=== PATIENT | male | born 1955 | race Caucasian/White ===

== ENCOUNTER 2018-10-22 06:46 | Inpatient (IN) ==
[2018-10-22] MEDS ORDERED: 0.9 % Sodium Chloride 1,000 ML IVC ONE (07:20)
--- NOTE | 2018-10-22 07:24 | Emergency Department Note ---
Disposition Clinical Impression: Hyponatremia Disposition: Admitted As Inpatient Condition: Fair Referrals: Alessandra Reyes, CLINICAL PHARMACIST [Primary Care Provider] - Forms: ED Satisfaction Letter Time of Disposition: 09:02 General Adult HPI - General Chief complaint: ED Recheck/Abnormal Lab/Rx Stated complaint: low sodium Time Seen by Provider: 10/22/18 07:02 Source: patient Limitations: no limitations - History of Present Illness HPI Narrative: Patient is 62-year-old gentleman who presents to the emergency department with chief complaint of generalized weakness and hyponatremia. Patient reports he has prior history of SIADH and has episodes of hyponatremia. The patient reports that he had an outpatient check of his sodium that showed him to have a level of 121. The patient states that he has not filled his normal self. The patient reports that he has felt lightheadedness had a headache and has had gen eralized abdominal pain. Pain Scale: 4 - Related Data Allergies Allergy/AdvReac Type Severity Reaction Status Date / Time morphine Allergy See Verified 10/22/18 06:49 Comments aspirin AdvReac See Verified 10/22/18 06:49 Comments NSAIDS (Non-Steroidal AdvReac See Verified 10/22/18 06:49 Anti-Inflamma Comments All systems ED: reviewed and negative except as stated. Past Medical History - Past Medical History Attestation: Yes The following information was validated with the patient. Medical history: Reports: no medical history Psychiatric history: Reports: no psych history - Social History Smoking Status: Never smoker Smokeless Tobacco Status: No Alcohol use: Reports: none Drug use: Reports: none Physical Exam General: Conversant and pleasant interactive and nontoxic. Head: Normocephalic/atraumatic Eyes:PERRLA, EOMI, no conjunctivitis Nares: Without d/c. Ears: No erythema or d/c noted. Oralpharnyx: P&MMM noted, Neck: Supple, no JVD or ENVIRONMENTAL DIRECTOR noted. Cardovascular: regular rate and rhythm without murmur, brisk capillary refill, no peripheral edema. Lungs: Clear to ascultation bilaterally, non-labored Abd: Soft diffuse mild tenderness, Non Distended, no guarding, no rebound. : Defered Extremities: moves all extremities equally Neuro: AOx3, no obvious gross neuro deficit Psych: Normal Affect Derm: No rash noted - General Limitations: no limitations General appearance: alert, in no apparent distress Course Vital Signs Temperature 97.4 F L 10/22/18 06:50 Pulse Rate 67 10/22/18 06:50 Respiratory Rate 18 10/22/18 06:50 Blood Pressure 147/93 10/22/18 06:50 O2 Sat by Pulse Oximetry 100 10/22/18 06:50 Temperature 97.4 F L 10/22/18 06:56 Pulse Rate 61 10/22/18 07:51 Respiratory Rate 16 10/22/18 07:51 Blood Pressure 146/85 10/22/18 07:51 O2 Sat by Pulse Oximetry 100 10/22/18 07:51 Oxygen Delivery Oxygen Delivery Room Air Medical Decision Making - Lab Data Result diagrams: 10/22/18 07:34 10/22/18 07:34 Lab Results 10/22/18 10/22/18 10/22/18 Range/Units 07:34 07:34 07:34 WBC 6.8 (4.3-11.1) K/mcL RBC 4.11 L (4.19-5.50) M/mcL Hgb 12.1 L (12.9-16.9) g/dL Hct 34.0 L (37.5-50.1) % MCV 82.7 L (83.0-100.0) fL MCH 29.4 (28.0-33.3) pg MCHC 35.6 H (31.6-35.5) g/dL RDW 13.3 (11.5-14.5) % Plt Count 249 (140-400) K/mcL MPV 10.1 (9.4-12.4) fL Immature Gran % 0.1 (0-4) % Seg Neutrophils % 40.4 % Lymphocytes % 39.4 % Monocytes % 15.3 % Eosinophils % 4.4 % Basophils % 0.4 % Neutrophils # 2.7 (1.6-8.9) K/mcL Lymphocytes # 2.7 (0.6-4.6) K/mcL Monocytes # 1.0 (0.0-1.3) K/mcL Eosinophils # 0.3 (0.0-0.6) K/mcL Basophils # 0.0 (0.0-0.2) K/mcL Sodium 116 L* (136-145) mEq/L Potassium 3.7 (3.5-5.1) mEq/L Chloride 85 L (98-107) mEq/L Carbon Dioxide 25 (23-29) mEq/L BUN 8 (8-23) mg/dL Creatinine 0.63 L (0.70-1.30) mg/dL Est GFR ( Amer) > 60 (> 60) Est GFR (Non-Af Amer) > 60 (> 60) BUN/Creatinine Ratio 13 (6-26) Glucose 93 (70-105) mg/dL Calculated Osmolality 240 L (280-300) Lactic Acid 0.7 (0.5-2.2) mmol/L Calcium 8.8 (8.6-10.3) mg/dL Venous Ioniz Calcium (1.15-1.35) mmol/L Magnesium 1.4 L (1.6-2.6) mg/dL Total Bilirubin 0.7 (0.3-1.0) mg/dL AST 27 (13-39) Units/L ALT 20 (7-52) Units/L Alkaline Phosphatase 60 (34-104) Units/L Troponin I < 0.03 (< 0.04) ng/mL Serum Total Protein 6.6 (6.4-8.9) g/dL Albumin 3.8 (3.5-5.7) g/dL Globulin 2.8 (2.4-3.5) g/dL Albumin/Globulin Ratio 1.4 (1.1-2.2) Urine Color (Yellow) Urine Clarity (Clear) Urine pH (5.0-8.0) pH Units Ur Specific [place] (1.010-1.025) Urine Protein (Neg-Trace) mg/dL Urine Glucose (UA) (Normal) mg/dL Urine Ketones (Negative) mg/dL Urine Blood (Negative) Urine Nitrite (Negative) Urine Bilirubin (Negative) Urine Urobilinogen (Normal) mg/dL Ur Leukocyte Esterase (Negative) Ur Culture Indicated? (NO) 10/22/18 10/22/18 Range/Units 07:45 Unknown WBC (4.3-11.1) K/mcL RBC (4.19-5.50) M/mcL Hgb (12.9-16.9) g/dL Hct (37.5-50.1) % MCV (83.0-100.0) fL MCH (28.0-33.3) pg MCHC (31.6-35.5) g/dL RDW (11.5-14.5) % Plt Count (140-400) K/mcL MPV (9.4-12.4) fL Immature Gran % (0-4) % Seg Neutrophils % % Lymphocytes % % Monocytes % % Eosinophils % % Basophils % % Neutrophils # (1.6-8.9) K/mcL Lymphocytes # (0.6-4.6) K/mcL Monocytes # (0.0-1.3) K/mcL Eosinophils # (0.0-0.6) K/mcL Basophils # (0.0-0.2) K/mcL Sodium (136-145) mEq/L Potassium (3.5-5.1) mEq/L Chloride (98-107) mEq/L Carbon Dioxide (23-29) mEq/L BUN (8-23) mg/dL Creatinine (0.70-1.30) mg/dL Est GFR ( Amer) (> 60) Est GFR (Non-Af Amer) (> 60) BUN/Creatinine Ratio (6-26) Glucose (70-105) mg/dL Calculated Osmolality (280-300) Lactic Acid (0.5-2.2) mmol/L Calcium (8.6-10.3) mg/dL Venous Ioniz Calcium 1.04 L (1.15-1.35) mmol/L Magnesium (1.6-2.6) mg/dL Total Bilirubin (0.3-1.0) mg/dL AST (13-39) Units/L ALT (7-52) Units/L Alkaline Phosphatase (34-104) Units/L Troponin I (< 0.04) ng/mL Serum Total Protein (6.4-8.9) g/dL Albumin (3.5-5.7) g/dL Globulin (2.4-3.5) g/dL Albumin/Globulin Ratio (1.1-2.2) Urine Color Yellow (Yellow) Urine Clarity Clear (Clear) Urine pH 6.5 (5.0-8.0) pH Units Ur Specific [place] 1.011 (1.010-1.025) Urine Protein Negative (Neg-Trace) mg/dL Urine Glucose (UA) Normal (Normal) mg/dL Urine Ketones 80 H (Negative) mg/dL Urine Blood Negative (Negative) Urine Nitrite Negative (Negative) Urine Bilirubin Negative (Negative) Urine Urobilinogen Normal (Normal) mg/dL Ur Leukocyte Esterase Negative (Negative) Ur Culture Indicated? NO (NO)
[2018-10-22 07:47] LABS: Basophils % 0.4 %; Eosinophils # 0.3 K/mcL (0.0-0.6); Eosinophils % 4.4 %; Hemoglobin 12.1 g/dL (12.9-16.9); Immature Granulocytes % 0.1 % (0-4); Lymphocytes # 2.7 K/mcL (0.6-4.6); Lymphocytes % 39.4 %; Mean Corpuscular HGB Conc 35.6 g/dL (31.6-35.5); Mean Corpuscular Hemoglobin 29.4 pg (28.0-33.3); Mean Corpuscular Volume 82.7 fL (83.0-100.0); Mean Platelet Volume 10.1 fL (9.4-12.4); Monocytes % 15.3 %; Neutrophils # 2.7 K/mcL (1.6-8.9); Platelet Count 249 K/mcL (140-400); Red Blood Count 4.11 M/mcL (4.19-5.50); Red Cell Distribution Width 13.3 % (11.5-14.5); Segmented Neutrophils % 40.4 %
[2018-10-22 07:49] LABS: VBG Ionized Calcium 1.04 mmol/L (1.15-1.35)
[2018-10-22 08:11] LABS: Alanine Aminotransferase 20 Units/L (7-52); Albumin 3.8 g/dL (3.5-5.7); Albumin/Globulin Ratio 1.4 (1.1-2.2); Alkaline Phosphatase 60 Units/L (34-104); Aspartate Amino Transferase 27 Units/L (13-39); BUN/Creatinine Ratio 13 (6-26); Bilirubin,Total 0.7 mg/dL (0.3-1.0); Blood Urea Nitrogen 8 mg/dL (8-23); Calcium 8.8 mg/dL (8.6-10.3); Carbon Dioxide 25 mEq/L (23-29); Chloride 85 mEq/L (98-107); Globulin 2.8 g/dL (2.4-3.5); Glucose 93 mg/dL (70-105); Magnesium 1.4 mg/dL (1.6-2.6); Osmolality,Calculated 240 (280-300); Potassium 3.7 mEq/L (3.5-5.1); Sodium 116 mEq/L (136-145); Total Protein 6.6 g/dL (6.4-8.9); Troponin I < 0.03 ng/mL (< 0.04); eGFR For Non-African Americans > 60 (> 60)
[2018-10-22 08:40] LABS: Bilirubin,Urine Negative (Negative); Blood,Urine Negative (Negative); Clarity,Urine Clear (Clear); Color,Urine Yellow (Yellow); Glucose,Urine (UA) Normal (Normal); Ketones,Urine 80 mg/dL (Negative); Leukocyte Esterase,Urine Negative (Negative); Nitrite,Urine Negative (Negative); PH,Urine 6.5 pH Units (5.0-8.0); Protein,Urine Negative (Neg-Trace); Specific Gravity,Urine 1.011 (1.010-1.025); Urobilinogen,Urine Normal (Normal)
--- NOTE | 2018-10-22 09:16 | Nephrology Consult Note ---
Date of Encounter: 10/22/18 Time of Encounter: 10:30 Assessment and Plan (1) Hyponatremia Current Visit: Yes Status: Acute Hyponatremia with mild symptoms of generalized weakness and fatigue. Most likely etiology SIADH and unable to absorb NaCl tablets or has had increase in free water intact. Patient's pharmacy might have switched his medication from brand to a generic and it may not be absorbing as well, he also has a hx of a total colectomy. He has also been taking alegra-D and maybe the antihistamine is causing decrease in absorption. Patient denies worsening chronic diarrhea. Can continue with labs to r/o other causes such as adrenal insufficiency, pseudohyponatremia, and psychogenic polydipsia with the urine osm, urine sodium, lipid panel Not due to diuretics, advanced renal disease, or hyperglycemia. Patient's TSH with normal limits. Patient was initially placed on normal saline but patient's sodium decreased therefore minimal pre-renal component. Will stop NS at this time. We will begin NaCl tablets 1g TID with Q4H sodium checks. Will need to be closely monitored on the floor for worsening signs of hyponatremia such as confusion or seizures. Will need to advance to higher level of care in the ICU with Q2H Na check if no improvement after next BMP. Plan: - NaCl 1gm TID - Sodium level check Q4H - urine os, urine Na, lipid panel pending - strict I&Os - encouraged minimal free water intake, encouraged fluids with electrolytes (2) Prolonged QT interval Current Visit: Yes Status: Acute (3) Hypomagnesemia Current Visit: Yes Status: Acute (4) Hx of colectomy Current Visit: Yes Status: Acute History of Present Illness - Reason for Consult Consult date: 10/22/18 Acute Kidney Injury Requesting physician: Junior Clarke - Chief Complaint hyponatremia - History of Present Illness Mr. Cardenas is a 62 y/o male with a pmh of radical colectomy 2006 for colon CA, Ulcerative colitis, and SIADH who presented to the ED for hyponatemia and generalized weakness. He stated that in June he was seen at [facility] for hyponatremia on 06/23/18 where he was given 3% saline and has been following with Dr. De Luna for his hyponatremia. He has been on NaCl 1g BID but recently n oticed that the pills he has been taking feel different from the pills he was previously taking and yesterday had a bowel movement where he saw the full tablet of the NaCl in his stool. For the last couple of weeks has noticed increase swelling in his legs and fluctuations in his weight going between 197- 201lbs. He has noticed increase post-nasal drainage and headaches, so for the last 2 days he has been taking Alegra-D. He has been trying to drink more sports drinks. He has noticed diffuse weakness but denies having a seizure. Past Med Surg Social Fam HX - Past Medical History Medical history: no medical history Psychiatric history: no psych history - Social History Smoking Status: Never smoker Smokeless Tobacco Status: No Alcohol use: none Drug use: none - Family History Mother Living Status: Still Living Medications and Allergies Diphenoxylate/Atropine [Lomotil 2.5 mg/0.025 mg] 1 tab PO DAILY 10/22/18 [History] Imodium PO PRN 10/22/18 [History] Sodium Chloride Tab 1 mg BID 10/22/18 [History] Allergy/AdvReac Type Severity Reaction Status Date / Time morphine Allergy See Verified 10/22/18 06:49 Comments aspirin AdvReac See Verified 10/22/18 06:49 Comments NSAIDS (Non-Steroidal AdvReac See Verified 10/22/18 06:49 Anti-Inflamma Comments Review of Systems Constitutional: as per HPI Exam - Vital Signs Vital signs: Initial Vital Signs Temp Pulse Resp BP Pulse Ox 97.4 F L 67 18 147/93 100 10/22/18 06:50 10/22/18 06:50 10/22/18 06:50 10/22/18 06:50 10/22/18 06:50 Vital Signs - Last 8 Hours Temp Pulse Resp BP Pulse Ox 10/22/18 07:51 61 16 146/85 100 10/22/18 07:28 61 12 146/85 100 10/22/18 06:56 97.4 F L 67 18 147/93 100 10/22/18 06:50 97.4 F L 67 18 147/93 100 Intake and Output 10/21/18 10/22/18 10/22/18 23:59 07:59 15:59 Other: Weight 91.172 kg Patient Weight 10/22/18 23:59 Weight 91.172 kg - General Appearance Exam: Constitutional: Alert, in no acute distress Head: Normocephalic, atraumatic Heart: Normal, regular rate and rhythm, no murmurs Lungs: Clear to auscultation, no wheezes, rales, or rhonchi Abdomen: Soft, nondistended, nontender, bowel sounds present and normal, no guarding or rigidity. Extremities: No edema, No clubbing, radial pulse +2/4, capillary refill <2sec. Skin: Skin warm and dry, no lesions, no rashes, no jaundice Neurologic: Cranial nerves II through XII grossly intact, strength 5/5 in all extremities, no asterixis Psych: Cooperative with exam, good eye contact, cognitive function intact, speech clear, thought process logical, and goal directed Results - Lab Results 10/22/18 07:34 10/22/18 12:17 Most recent lab results 10/22/18 07:34 Calcium 8.8 Magnesium 1.4 L Consult Discharge Plan - Plan Referrals: Alessandra Reyes, [facility] [Primary Care Provider] -
[2018-10-22] MEDS ORDERED: Naloxone 0.4 MG/ML INJ IVP PRN (09:29)
[2018-10-22] MEDS ORDERED: 0.9 % Sodium Chloride 1,000 ML IVC SCH (09:30)
--- NOTE | 2018-10-22 09:37 | Internal Med History&Physical ---
Date of Encounter: 10/22/18 Time of Encounter: 08:40 Internal Medicine - H&P: HPI Chief complaint: Low sodium level Admitted From: Home Plans for Post Hospital Care: Home History of present illness: Mr. 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 He recently had labs performed at his tremor care physician and was told that he has sodium of 121 and was referred to the emergency department. He reports that he has had an extensive workup for his recurrent hyponatremia and was told that he has SIADH at another facility. He started to follow with nephrology at [facility] recently for his hyponatremia. He reports that he drinks at least 7-8 glasses of liquids a day to try to keep himself hydrated most of that he reports is reports drinks with electrolytes in them. He denies excessive thirst and he was told by another facility after having workup performed that he has SIADH. His sodium has gone as low as 111 before. He does report that for the past few days he has been becoming more fatigued he cannot recall alleviating or aggravating factors but his fatigue has been progressively worsening. He was prescribed salt tablets 1 g twice a day at the other facility where workup was done for SIADH and he reports that he is compliant with his salt tablets however after having a bowel movement yesterday he realizes the salt tablet was not dissolved. He reported that he had a prior bowel surgery and his entire large bowel was removed and anastomosis with the small bowel,/pouch formation was made. He denies being on any SSRIs or diuretics or blood pressure medications. He denies fever, chills, nausea, vomiting, diarrhea, chest pain, shortness of breath, palpitations, cough, recent illnesses, excessive thirst. Past Med Surg Social Fam HX - Past Medical History Medical history: no medical history Psychiatric history: no psych history - Past Surgical History Surgical History: colectomy Additional surgical history: Colectomy - Social History Smoking Status: Never smoker Smokeless Tobacco Status: No Alcohol use: none Drug use: none Internal Medicine - H&P: Meds Diphenoxylate/Atropine [Lomotil 2.5 mg/0.025 mg] PRN 10/22/18 [History] Imodium PO PRN 10/22/18 [History] Allergy/AdvReac Type Severity Reaction Status Date / Time morphine Allergy See Verified 10/22/18 06:49 Comments aspirin AdvReac See Verified 10/22/18 06:49 Comments NSAIDS (Non-Steroidal AdvReac See Verified 10/22/18 06:49 Anti-Inflamma Comments All Systems PM: A 10-system review of systems was performed and is negative for pertinent findings except as documented above in the HPI. - Constitutional Vitals: Temp Pulse Resp BP Pulse Ox 97.4 F L 57 16 150/87 100 10/22/18 06:56 10/22/18 09:11 10/22/18 09:11 10/22/18 09:11 10/22/18 09:11 Exam: General: Patient is alert, oriented, no acute distress, Head: atraumatic, normocephalic, Eye: normal appearance, PERRL, no scleral icterus, no conjunctival injection ENT: mucous membranes moist, normal external ear exam Neck: normal inspection, trachea midline, full ROM Chest: normal inspection, symmetric chest rise Respiratory: Good respiratory effort. Bilateral breath sounds are clear without wheezing, crackles, or rhonchi. Cardiovascular: Regular rate and rhythm. s1 and s2 No clicks, rubs, gallops, or murmors. Abdomen: Bowel sounds present normoactive x-4 quadrants. Abdomen is soft, nondistended. no Epigastric tenderness. No guarding or rebound. No organomegaly noted, obese musculoskeletal: Spontaneously moving all extremities. no edema, no calf tenderness Skin: warm, dry, intact. Neuro: Alert and oriented x4. No focal deficit Psych: Patient's affect is normal Internal Med - H&P Results - Labs CBC & Chem 7: 10/22/18 07:34 10/22/18 07:34 Labs: Short CBC 10/22/18 Range/Units 07:34 WBC 6.8 (4.3-11.1) K/mcL Hgb 12.1 L (12.9-16.9) g/dL Hct 34.0 L (37.5-50.1) % Plt Count 249 (140-400) K/mcL Neutrophils # 2.7 (1.6-8.9) K/mcL BMP 10/22/18 07:34 Sodium 116 L* Potassium 3.7 Chloride 85 L Carbon Dioxide 25 BUN 8 Creatinine 0.63 L Glucose 93 Calcium 8.8 Cardiac Enzymes 05/02/19 Range/Units 07:34 Troponin I < 0.03 (< 0.04) ng/mL Liver Function 10/22/18 Range/Units 07:34 Total Bilirubin 0.7 (0.3-1.0) mg/dL AST 27 (13-39) Units/L ALT 20 (7-52) Units/L Alkaline Phosphatase 60 (34-104) Units/L Albumin 3.8 (3.5-5.7) g/dL Urine 10/22/18 Range/Units Unknown Urine Color Yellow (Yellow) Urine Clarity Clear (Clear) Urine pH 6.5 (5.0-8.0) pH Units Ur Specific [place] 1.011 (1.010-1.025) Urine Protein Negative (Neg-Trace) mg/dL Urine Glucose (UA) Normal (Normal) mg/dL - EKG Data EKG shows normal: sinus rhythm (Prolonged QT of 512, right bundle branch block) - Impressions ITS Impressions Chest X-Ray 10/22/18 07:20 IMPRESSION: Left basilar atelectasis. Questionable 4 mm nodular opacity in the right upper lung which may be related to a prominent vessel. Recommend dedicated two view chest x-ray to see if this persists. No other acute cardiopulmonary findings. D/ / Mary King MD / Mary King MD Interpreting Provider: Mary King MD - Assessment and Plan (1) Hyponatremia Current Visit: Yes Status: Acute Assessment and plan: acute on chronic severe euvolemic hyponatremia 116 was referred from PCP office for sodium of 121 reports history of SIADH, ? also has polydipsia ( tries to hydrate himself) nephrology consulted by the ED physician Check BMP now then q4hrs Check serum osmolarity, Urine osmolarity, Urine lytes before IV hydration Check TSH, Free-T4 Lipid panel- TG in AM Do cosyntropin test in AM (if hyponatremia doesn't improve) Water restriction-1000 ml day NS 84 ml/hr then reassess in 4 hours, consider 3% if symptomatic Avoid correction of hyponatremia- goal of increased 8 meq over 24 hours If overcorrection occurs, administrater D5W and consider Desmopressin Avoid diuretics and SSRIs Neurochecks strict I/O (2) Obesity (BMI 30.0-34.9) Current Visit: Yes Status: Acute Assessment and plan: was counseled (3) Prolonged QT interval Current Visit: Yes Status: Acute Assessment and plan: QTC is 512 Magnesium is 1.4replaced following the morning (4) Lung nodule Current Visit: Yes Status: Acute Assessment and plan: Questionable 4 mm nodular opacity in the right upper lung, consider further imaging to evaluate (5) DVT prophylaxis Current Visit: Yes Status: Acute Assessment and plan: heparin sc - Time Spent With Patient Total time spent is greater than 50% in coordination of care (as documented) at patient's floor/unit and/or counseling patient:
[2018-10-22 10:09] LABS: Thyroid Stimulating Hormone 1.354 mcIU/mL (0.340-5.600)
[2018-10-22] MEDS ORDERED: Diphenoxylate/Atropine 1 TAB TABLET PO PRN (12:44)
[2018-10-22 12:51] LABS: BUN/Creatinine Ratio 14 (6-26); Blood Urea Nitrogen 8 mg/dL (8-23); Calcium 8.3 mg/dL (8.6-10.3); Carbon Dioxide 26 mEq/L (23-29); Chloride 84 mEq/L (98-107); Glucose 88 mg/dL (70-105); Osmolality,Calculated 238 (280-300); Potassium 3.9 mEq/L (3.5-5.1); Sodium 115 mEq/L (136-145); eGFR For Non-African Americans > 60 (> 60)
[2018-10-22] MEDS: *HR* Heparin 5,000 UNIT/ML VIAL SQ SCH ×2 (13:42→20:27)
[2018-10-22 14:32] LABS: Potassium,Urine 15.6 mEq/L
[2018-10-22 14:40] LABS: Amphetamine Screen,Urine Negative ng/mL (Cutoff=1000); Barbiturate Screen,Urine Negative ng/mL (Cutoff=200); Benzodiazepines Screen,Urine Negative ng/mL (Cutoff=200); Cannabinoid Screen,Urine Negative ng/mL (Cutoff = 50); Cocaine Screen,Urine Negative ng/mL (Cutoff= 300); Opiate Screen,Urine Negative ng/mL (Cutoff=300); Phencyclidine Screen,Urine Negative ng/mL (Cutoff=25)
--- NOTE | 2018-10-22 14:55 | Electrocardiograph Report ---
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
[2018-10-22 17:59] LABS: BUN/Creatinine Ratio 13 (6-26); Blood Urea Nitrogen 7 mg/dL (8-23); Calcium 8.2 mg/dL (8.6-10.3); Carbon Dioxide 27 mEq/L (23-29); Chloride 84 mEq/L (98-107); Glucose 88 mg/dL (70-105); Osmolality,Calculated 237 (280-300); Sodium 115 mEq/L (136-145); eGFR For Non-African Americans > 60 (> 60)
[2018-10-22] MEDS: Acetaminophen 325 MG TABLET PO PRN (18:02)
[2018-10-22] MEDS ORDERED: *HR* 3% Sodium Chloride 500 ML IV.SOLN IVC SCH (18:30)
--- NOTE | 2018-10-22 19:35 | Acute Care Surg Procedure Note ---
Date of procedure: 10/22/18 Pre-op diagnosis: Central access for treatment of sodium disorder Post-op diagnosis: same Procedure: Left subclavian central line placement The patient requires placement of central venous access for treatment of sodium disorder. After informed consent the patient is placed in the supine position and the left subclavian area is prepped and draped in sterile fashion utilizing ChloraPrep standard draping techniques. Timeout was taken and the patient is identified. The skin was anesthetized with 5 mL of 1% lidocaine with epinephrine. Seldinger needle was passed into the subclavian vein on the first pass. The wire passed without difficulty and without ectopy. I nicked the skin and dilated the tract. Triple-lumen catheter was placed. Triple-lumen catheter was sutured in place and the antimicrobial disc was placed under the sterile dressing. All 3 ports flushed normally. Patient tolerated procedure very well step portable chest x- ray is ordered. Complications: None Anesthesia: BRONWYN Surgeon: Harry Fatima Estimated blood loss (cc): 5 Pathology: none sent Condition: stable Disposition: ICU
[2018-10-22] MEDS ORDERED: Ondansetron 4 MG/2 ML VIAL IVP PRN (19:50)
[2018-10-22 21:08] LABS: BUN/Creatinine Ratio 13 (6-26); Blood Urea Nitrogen 7 mg/dL (8-23); Calcium 8.2 mg/dL (8.6-10.3); Carbon Dioxide 25 mEq/L (23-29); Chloride 83 mEq/L (98-107); Glucose 87 mg/dL (70-105); Osmolality,Calculated 233 (280-300); Sodium 113 mEq/L (136-145); eGFR For Non-African Americans > 60 (> 60)
[2018-10-22 21:55] LABS: Troponin I < 0.03 ng/mL (< 0.04)
[2018-10-22 23:53] LABS: BUN/Creatinine Ratio 13 (6-26); Blood Urea Nitrogen 7 mg/dL (8-23); Calcium 8.4 mg/dL (8.6-10.3); Carbon Dioxide 25 mEq/L (23-29); Chloride 84 mEq/L (98-107); Glucose 84 mg/dL (70-105); Osmolality,Calculated 233 (280-300); Potassium 4.1 mEq/L (3.5-5.1); Sodium 113 mEq/L (136-145); eGFR For Non-African Americans > 60 (> 60)
[2018-10-22] MEDS ORDERED: *HR* 3% Sodium Chloride 500 ML IV.SOLN IVC STA (23:56)
[2018-10-23 01:39] LABS: BUN/Creatinine Ratio 14 (6-26); Blood Urea Nitrogen 7 mg/dL (8-23); Calcium 8.2 mg/dL (8.6-10.3); Carbon Dioxide 23 mEq/L (23-29); Chloride 84 mEq/L (98-107); Glucose 85 mg/dL (70-105); Osmolality,Calculated 233 (280-300); Potassium 3.9 mEq/L (3.5-5.1); Sodium 113 mEq/L (136-145); eGFR For Non-African Americans > 60 (> 60)
[2018-10-23] MEDS ORDERED: *HR* 3% Sodium Chloride 500 ML IV.SOLN IVC ONE (01:55)
[2018-10-23 03:34] LABS: Chol/HDL Ratio 3.4 (0-4.9); Magnesium 1.4 mg/dL (1.6-2.6)
[2018-10-23 03:42] LABS: Basophils % 0.3 %; Eosinophils # 0.3 K/mcL (0.0-0.6); Eosinophils % 3.5 %; Hematocrit 33.3 % (37.5-50.1); Hemoglobin 11.8 g/dL (12.9-16.9); Immature Granulocytes % 0.1 % (0-4); Lymphocytes # 2.1 K/mcL (0.6-4.6); Lymphocytes % 26.9 %; Mean Corpuscular HGB Conc 35.4 g/dL (31.6-35.5); Mean Corpuscular Hemoglobin 29.1 pg (28.0-33.3); Mean Corpuscular Volume 82.2 fL (83.0-100.0); Mean Platelet Volume 10.7 fL (9.4-12.4); Monocytes % 12.8 %; Neutrophils # 4.5 K/mcL (1.6-8.9); Platelet Count 246 K/mcL (140-400); Red Blood Count 4.05 M/mcL (4.19-5.50); Red Cell Distribution Width 13.2 % (11.5-14.5); Segmented Neutrophils % 56.4 %
[2018-10-23 04:11] LABS: BUN/Creatinine Ratio 12 (6-26); Blood Urea Nitrogen 6 mg/dL (8-23); Calcium 8.1 mg/dL (8.6-10.3); Carbon Dioxide 24 mEq/L (23-29); Chloride 85 mEq/L (98-107); Glucose 85 mg/dL (70-105); Osmolality,Calculated 233 (280-300); Potassium 4.1 mEq/L (3.5-5.1); Sodium 113 mEq/L (136-145); eGFR For Non-African Americans > 60 (> 60)
[2018-10-23] MEDS: Acetaminophen 325 MG TABLET PO PRN ×2 (04:27→20:59)
--- NOTE | 2018-10-23 05:51 | Event Note ---
Date of Encounter: 10/23/18 Time of Encounter: 05:45 - Nephrology Event Note Nephrology Chart Update His PNa has worsened. And so 3% saline strategy was instituted last night with 50mL/hr at 100mL increments. He received this x2. PNa now stable at 113. In review of his urine studies his U osmo is inappropriately elevated, consistent with SIADH. So he should continue to have a tight fluid restriction, plus NaCl tablets 1gm po TID. I'll add Tolvaptan to this strategy as well x1. Goal is to increase the PNa by 6-8mEq / 24hr and no faster. While the PNa is <120, he should have very frequent PNa checks at q2hr. My colleague Dr. Lei is actually starting her call/on-service this day, but remotely I reviewed his chart and made the above recommendations to help start making improvements. Thank you.
[2018-10-23] MEDS: *HR* Heparin 5,000 UNIT/ML VIAL SQ SCH ×3 (05:57→20:48)
[2018-10-23] MEDS ORDERED: Tolvaptan 15 MG TABLET PO ONE (05:58)
[2018-10-23 06:42] LABS: BUN/Creatinine Ratio 12 (6-26); Blood Urea Nitrogen 6 mg/dL (8-23); Calcium 8.1 mg/dL (8.6-10.3); Carbon Dioxide 22 mEq/L (23-29); Chloride 84 mEq/L (98-107); Glucose 87 mg/dL (70-105); Osmolality,Calculated 235 (280-300); Potassium 3.7 mEq/L (3.5-5.1); Sodium 114 mEq/L (136-145); eGFR For Non-African Americans > 60 (> 60)
[2018-10-23 09:43] LABS: BUN/Creatinine Ratio 13 (6-26); Blood Urea Nitrogen 7 mg/dL (8-23); Calcium 8.4 mg/dL (8.6-10.3); Carbon Dioxide 23 mEq/L (23-29); Chloride 85 mEq/L (98-107); Glucose 78 mg/dL (70-105); Osmolality,Calculated 239 (280-300); Sodium 116 mEq/L (136-145); eGFR For Non-African Americans > 60 (> 60)
[2018-10-23 11:59] LABS: BUN/Creatinine Ratio 12 (6-26); Blood Urea Nitrogen 7 mg/dL (8-23); Calcium 8.8 mg/dL (8.6-10.3); Carbon Dioxide 24 mEq/L (23-29); Chloride 90 mEq/L (98-107); Glucose 126 mg/dL (70-105); Osmolality,Calculated 248 (280-300); Potassium 3.9 mEq/L (3.5-5.1); Sodium 119 mEq/L (136-145); eGFR For Non-African Americans > 60 (> 60)
--- NOTE | 2018-10-23 13:36 | Internal Med Progress Note ---
Hospitalist Progress Note - Encounter Date of Encounter: 10/23/18 Time of Encounter: 13:33 - Subjective Interval History: Pt feels OK, stated that he had this issue three times already, not feeling the best today - Exam Vitals: Temp Pulse Resp BP Pulse Ox 97.8 F 62 20 103/62 96 10/23/18 12:32 10/23/18 12:00 10/23/18 12:00 10/23/18 12:00 10/23/18 12:00 Exam: General: Patient is alert, oriented, no acute distress, Head: atraumatic, normocephalic, Eye: normal appearance, PERRL, no scleral icterus, no conjunctival injection ENT: mucous membranes moist, normal external ear exam Neck: normal inspection, trachea midline, full ROM Chest: normal inspection, symmetric chest rise Respiratory: Good respiratory effort. Bilateral breath sounds are clear without wheezing, crackles, or rhonchi. Cardiovascular: Regular rate and rhythm. s1 and s2 No clicks, rubs, gallops, or murmors. Abdomen: Bowel sounds present normoactive x-4 quadrants. Abdomen is soft, nondistended. no Epigastric tenderness. No guarding or rebound. No organomegaly noted, obese musculoskeletal: Spontaneously moving all extremities. no edema, no calf tenderness Skin: warm, dry, intact. Neuro: Alert and oriented x4. No focal deficit Psych: Patient's affect is normal - Summary of Assessment and Plan Summary of Assessment and Plan: This is a 62 yom with acute on chornic hyponatremia 1) acute on chronic hypantremia: Renal is on boad, pt got 3% normal saline at 50cc/hr and also a dose of vaptan, but that was discontinued for whatever reason --we will defer this to ephreolgoy 2)Code: Full code 3)diet: regular diet if pt is on vaptan, if not, deffer to neprholgoy as to fluid restricion 4) chornic diarrhea: I told pt will need replenish hydration with canned soup rather than other soda etc. 5) disposition: sodium is trennding up, is table for 24 hours, pt can then be dsicharged home. Not sure if pt needs vaptan as out pt, I will defer this to neprhology. Time: 35min - Time Spent with Patient Total time spent is greater than 50% in coordination of care (as documented) at patient's floor/unit and/or counseling patient: Internal Medicine: Result - Labs CBC & Chem 7: 10/23/18 03:00 10/23/18 11:00 Labs: Short CBC 10/23/18 Range/Units 03:00 WBC 7.9 (4.3-11.1) K/mcL Hgb 11.8 L (12.9-16.9) g/dL Hct 33.3 L (37.5-50.1) % Plt Count 246 (140-400) K/mcL Neutrophils # 4.5 (1.6-8.9) K/mcL BMP 10/22/18 10/22/18 10/22/18 16:34 20:30 23:06 Sodium 115 L* 113 L* 113 L* Potassium 4.0 4.0 4.1 Chloride 84 L 83 L 84 L Carbon Dioxide 27 25 25 BUN 7 L 7 L 7 L Creatinine 0.52 L 0.54 L 0.55 L Glucose 88 87 84 Calcium 8.2 L 8.2 L 8.4 L 10/23/18 10/23/18 10/23/18 01:00 03:00 06:00 Sodium 113 L* 113 L* 114 L* Potassium 3.9 4.1 3.7 Chloride 84 L 85 L 84 L Carbon Dioxide 23 24 22 L BUN 7 L 6 L 6 L Creatinine 0.51 L 0.50 L 0.49 L Glucose 85 85 87 Calcium 8.2 L 8.1 L 8.1 L 10/23/18 10/23/18 08:44 11:00 Sodium 116 L* 119 L* Potassium 4.0 3.9 Chloride 85 L 90 L Carbon Dioxide 23 24 BUN 7 L 7 L Creatinine 0.53 L 0.59 L Glucose 78 126 H Calcium 8.4 L 8.8 Cardiac Enzymes 10/22/18 Range/Units 20:30 Troponin I < 0.03 (< 0.04) ng/mL - Impressions Impressions Chest X-Ray 10/22/18 19:27 IMPRESSION: No acute process. D/ / Sid Jesus MD / Sid Jesus MD Interpreting Provider: Sid Jesus MD Consult Discharge Plan - Plan Referrals: Alessandra Reyes CNP [Primary Care Provider] -
--- NOTE | 2018-10-23 15:55 | Electrocardiograph Report ---
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
[2018-10-23 21:32] LABS: BUN/Creatinine Ratio 13 (6-26); Blood Urea Nitrogen 8 mg/dL (8-23); Calcium 9.4 mg/dL (8.6-10.3); Carbon Dioxide 25 mEq/L (23-29); Chloride 96 mEq/L (98-107); Glucose 110 mg/dL (70-105); Osmolality,Calculated 265 (280-300); Potassium 4.4 mEq/L (3.5-5.1); Sodium 128 mEq/L (136-145); eGFR For Non-African Americans > 60 (> 60)
--- NOTE | 2018-10-23 22:45 | Nephrology Progress Note ---
Date of Encounter: 10/23/18 Time of Encounter: 12:00 - Assessment and Plan (1) Hyponatremia Current Visit: Yes Status: Acute Sodium noted at 116 and awaiting next labs. Per nurse increased watery urine noted after tolvaptan which is reassuring Continue hypertonic saline till sodium level at 120 Continue serial sodium checks Continue liberalized sodium in diet Fluid restriction advised Subjective Interval history: Interim events noted s/p tolvaptan 15mg this am by my associate, Dr De Luna. Pt seen and examined complaining of hiccups since early this am. New labs pending Objective - Vital Signs Vital signs: Vital Signs Temp Pulse Resp BP Pulse Ox 10/23/18 22:00 85 18 117/74 94 10/23/18 21:00 90 22 105/82 95 10/23/18 20:00 77 20 156/86 95 10/23/18 19:17 97.8 F 156/86 10/23/18 18:00 76 20 123/73 95 10/23/18 17:00 87 18 134/80 93 10/23/18 16:00 76 16 137/85 97 10/23/18 15:55 97.8 F 10/23/18 15:00 95 20 113/61 95 10/23/18 14:00 74 18 138/91 94 10/23/18 13:00 91 18 130/77 97 10/23/18 12:32 97.8 F 10/23/18 12:00 62 20 103/62 96 10/23/18 11:00 68 16 126/74 99 10/23/18 10:00 73 18 127/85 96 10/23/18 09:00 70 16 149/102 98 10/23/18 08:00 70 18 137/84 98 10/23/18 07:20 97.5 F L 10/23/18 07:00 72 19 147/88 98 10/23/18 06:00 66 18 134/86 100 10/23/18 05:00 65 16 156/102 94 10/23/18 04:00 80 16 142/82 94 10/23/18 03:43 77 10/23/18 03:00 98.0 F 77 12 119/101 94 10/23/18 02:00 60 12 143/77 94 10/23/18 01:13 97.8 F 10/23/18 01:00 62 12 132/82 94 10/23/18 00:00 62 12 132/82 94 10/22/18 23:00 73 12 146/80 94 Intake and Output 10/23/18 10/23/18 10/23/18 07:59 15:59 23:59 Intake Total 300 / 1864 1100 / 1864 464 / 1864 Output Total 551 / 3426 2325 / 3426 550 / 3426 Balance -251 / -1562 -1225 / -1562 -86 / -1562 Intake: IV Fluids 300 / 704 300 / 704 104 / 704 3% Sodium Chloride 100 ML @ 50 300 / 600 300 / 600 mls/hr IVC AD PRN Rx#: [id number] Magnesium Sulfate 2 GM In 0.9 % 104 / 104 Sodium Chloride 100 ML @ 52 mls/hr IVPB Q6H PRN Rx#: [id number] Oral 0 / 1160 800 / 1160 360 / 1160 Output: Urine 550 / 3425 2325 / 3425 550 / 3425 Stool 1 / 1 Other: Meal Lunch Dinner Percent of Meal Consumed 30% 100% Stool Size Small Moderate Small Stool Consistency liquid liquid loose Stool Characteristics Normal for Patient Stool Color Brown Green Brown Green # Voids 1 # Bowel Movements 1 Weight 92.3 kg Patient Weight 10/23/18 23:59 Weight 92.3 kg - General Appearance General appearance: Present: well-developed, well-nourished EENT: Present: ATNC, mucous membranes moist Neck: Present: no JVD, supple Respiratory: Present: clear Cardiology: Present: no edema, normal S1, normal S2 Gastrointestinal: Present: no tenderness, no guarding Integumentary: Present: warm and dry Neurologic: Present: no focal deficit Musculoskeletal: Present: no deformities Psychiatric: Present: mood/affect appropriate, cooperative - Lab 10/23/18 03:00 10/23/18 20:48 Most recent lab results 10/23/18 10/23/18 11:00 20:48 Calcium 8.8 9.4 Consult Discharge Plan - Plan Referrals: Alessandra Reyes, [employer] [Primary Care Provider] -
[2018-10-24 00:17] LABS: BUN/Creatinine Ratio 13 (6-26); Blood Urea Nitrogen 9 mg/dL (8-23); Calcium 9.3 mg/dL (8.6-10.3); Carbon Dioxide 23 mEq/L (23-29); Chloride 97 mEq/L (98-107); Glucose 92 mg/dL (70-105); Osmolality,Calculated 266 (280-300); Potassium 4.4 mEq/L (3.5-5.1); Sodium 129 mEq/L (136-145); eGFR For Non-African Americans > 60 (> 60)
[2018-10-24 04:29] LABS: BUN/Creatinine Ratio 13 (6-26); Blood Urea Nitrogen 9 mg/dL (8-23); Calcium 9.4 mg/dL (8.6-10.3); Carbon Dioxide 23 mEq/L (23-29); Chloride 98 mEq/L (98-107); Glucose 93 mg/dL (70-105); Osmolality,Calculated 266 (280-300); Potassium 4.3 mEq/L (3.5-5.1); Sodium 129 mEq/L (136-145); eGFR For Non-African Americans > 60 (> 60)
[2018-10-24] MEDS: *HR* Heparin 5,000 UNIT/ML VIAL SQ SCH ×3 (05:52→20:57)
[2018-10-24 08:56] LABS: BUN/Creatinine Ratio 13 (6-26); Blood Urea Nitrogen 10 mg/dL (8-23); Calcium 9.7 mg/dL (8.6-10.3); Carbon Dioxide 22 mEq/L (23-29); Chloride 97 mEq/L (98-107); Glucose 99 mg/dL (70-105); Osmolality,Calculated 269 (280-300); Potassium 4.4 mEq/L (3.5-5.1); Sodium 130 mEq/L (136-145); eGFR For Non-African Americans > 60 (> 60)
--- NOTE | 2018-10-24 11:23 | Nephrology Progress Note ---
Date of Encounter: 10/24/18 Time of Encounter: 12:00 - Assessment and Plan (1) Hyponatremia Current Visit: Yes Status: Acute Sodium noted at 130 very responsive to one dose of tolvaptan suggestive of ADH excess (no longer needed) Will need continued fluid restriction at 1.5 liter a day at home Will need liberalized use of sodium at home as well whether salt tabs or just increasing salt use Followup with us on discharge in 2-4 weeks but BMP in 1 week CXR negative for any abnormalities but might benefit from CT chest to rule out malignancy contributing to ADH excess (2) Hx of colectomy Current Visit: Yes Status: Acute hence absorption issues (3) Hypomagnesemia Current Visit: Yes Status: Acute magnesium now WNL, continue supplements prn Subjective Interval history: Pt seen and examined Objective - Vital Signs Vital signs: Vital Signs Temp Pulse Resp BP Pulse Ox 10/24/18 10:43 98 F 82 17 120/88 99 10/24/18 08:40 90 16 104/77 98 10/24/18 08:00 68 10/24/18 07:35 98.0 F 10/24/18 07:00 68 12 120/73 98 10/24/18 06:00 69 18 117/76 98 10/24/18 05:00 80 18 100/58 98 10/24/18 04:00 68 18 100/62 98 10/24/18 03:46 70 10/24/18 03:00 98.0 F 74 18 121/89 98 10/24/18 02:00 77 18 116/81 96 10/24/18 01:00 74 16 100/55 96 10/24/18 00:00 78 16 117/76 96 10/23/18 23:36 65 10/23/18 23:00 76 24 94/57 96 10/23/18 22:00 85 18 117/74 94 10/23/18 21:00 90 22 105/82 95 10/23/18 20:00 77 20 156/86 95 10/23/18 19:17 97.8 F 156/86 10/23/18 18:00 76 20 123/73 95 10/23/18 17:00 87 18 134/80 93 10/23/18 16:00 76 16 137/85 97 10/23/18 15:55 97.8 F 10/23/18 15:00 95 20 113/61 95 10/23/18 14:00 74 18 138/91 94 10/23/18 13:00 91 18 130/77 97 10/23/18 12:32 97.8 F 10/23/18 12:00 62 20 103/62 96 Intake and Output 10/23/18 10/24/18 10/24/18 23:59 07:59 15:59 Intake Total 704 / 2104 240 / 360 120 / 360 Output Total 900 / 3776 Balance -196 / -1672 240 / 360 120 / 360 Intake: IV Fluids 104 / 704 Magnesium Sulfate 2 GM In 0.9 % 104 / 104 Sodium Chloride 100 ML @ 52 mls/hr IVPB Q6H PRN Rx#: [id number] Oral 600 / 1400 240 / 360 120 / 360 Output: Urine 900 / 3775 Other: Meal Dinner Breakfast Percent of Meal Consumed 100% 50% Stool Size Small Stool Consistency loose Stool Color Brown # Voids 1 1 # Bowel Movements 1 - Lab 10/23/18 03:00 10/24/18 08:00 Most recent lab results 10/23/18 10/24/18 10/24/18 23:45 03:45 08:00 Calcium 9.3 9.4 9.7 Magnesium 2.0 Consult Discharge Plan - Plan Referrals: Alessandra Reyes CNP [Primary Care Provider] -
--- NOTE | 2018-10-24 11:43 | Internal Med Progress Note ---
Hospitalist Progress Note - Encounter Date of Encounter: 10/24/18 Time of Encounter: 11:41 - Exam Vitals: Temp Pulse Resp BP Pulse Ox 98 F 82 17 120/88 99 10/24/18 10:43 10/24/18 10:43 10/24/18 10:43 10/24/18 10:43 10/24/18 10:43 Exam: General: Patient is alert, oriented, no acute distress, Head: atraumatic, normocephalic, Eye: normal appearance, PERRL, no scleral icterus, no conjunctival injection ENT: mucous membranes moist, normal external ear exam Neck: normal inspection, trachea midline, full ROM Chest: normal inspection, symmetric chest rise Respiratory: Good respiratory effort. Bilateral breath sounds are clear without wheezing, crackles, or rhonchi. Cardiovascular: Regular rate and rhythm. s1 and s2 No clicks, rubs, gallops, or murmors. Abdomen: Bowel sounds present normoactive x-4 quadrants. Abdomen is soft, nondistended. no Epigastric tenderness. No guarding or rebound. No organomegaly noted, obese musculoskeletal: Spontaneously moving all extremities. no edema, no calf tenderness Skin: warm, dry, intact. Neuro: Alert and oriented x4. No focal deficit Psych: Patient's affect is normal - Summary of Assessment and Plan Summary of Assessment and Plan: This is a 62 yom with acute on chornic hyponatremia 1) acute on chronic hypantremia: Renal is on boad, pt got 3% normal saline at 50cc/hr and also a dose of vaptan, both were discontinued. --we will defer this to nephreolgoy 2)Code: Full code 3)diet: regular diet if pt is on vaptan, if not, deffer to neprholgoy as to fluid restricion 4) chornic diarrhea: I told pt will need replenish hydration with canned soup rather than other soda etc. 5) disposition: Sodium 130 today, d/c the 3%, will keep over night, if sodium stable then dc with fluid restriction. Time: 35min - Time Spent with Patient Total time spent is greater than 50% in coordination of care (as documented) at patient's floor/unit and/or counseling patient: Internal Medicine: Result - Labs CBC & Chem 7: 10/23/18 03:00 10/24/18 08:00 Labs: BMP 10/23/18 10/23/18 10/23/18 11:00 13:22 15:00 Sodium 119 L* 123 L 126 L Potassium 3.9 Chloride 90 L Carbon Dioxide 24 BUN 7 L Creatinine 0.59 L Glucose 126 H Calcium 8.8 10/23/18 10/23/18 10/24/18 20:48 23:45 03:45 Sodium 128 L 129 L 129 L Potassium 4.4 4.4 4.3 Chloride 96 L 97 L 98 Carbon Dioxide 25 23 23 BUN 8 9 9 Creatinine 0.64 L 0.71 0.72 Glucose 110 H 92 93 Calcium 9.4 9.3 9.4 10/24/18 08:00 Sodium 130 L Potassium 4.4 Chloride 97 L Carbon Dioxide 22 L BUN 10 Creatinine 0.76 Glucose 99 Calcium 9.7 Consult Discharge Plan - Plan Referrals: Alessandra Reyes, [employer] MANAGER [Primary Care Provider] -
[2018-10-24 19:27] LABS: BUN/Creatinine Ratio 14 (6-26); Blood Urea Nitrogen 17 mg/dL (8-23); Calcium 9.8 mg/dL (8.6-10.3); Carbon Dioxide 25 mEq/L (23-29); Chloride 100 mEq/L (98-107); Glucose 132 mg/dL (70-105); Osmolality,Calculated 263 (280-300); Potassium 4.7 mEq/L (3.5-5.1); Sodium 125 mEq/L (136-145); eGFR For Non-African Americans 59 (> 60)
[2018-10-24 22:09] LABS: BUN/Creatinine Ratio 19 (6-26); Blood Urea Nitrogen 20 mg/dL (8-23); Calcium 9.3 mg/dL (8.6-10.3); Carbon Dioxide 23 mEq/L (23-29); Chloride 95 mEq/L (98-107); Glucose 108 mg/dL (70-105); Osmolality,Calculated 267 (280-300); Potassium 4.4 mEq/L (3.5-5.1); Sodium 127 mEq/L (136-145); eGFR For Non-African Americans > 60 (> 60)
[2018-10-25] MEDS: *HR* Heparin 5,000 UNIT/ML VIAL SQ SCH (06:25)
[2018-10-25 06:47] VITALS: BP 115/75
--- NOTE | 2018-10-25 11:29 | Discharge Summary ---
- NOTES TO OUTPATIENT PROVIDER Notes to Outpatient Provider: f/u with PCP in 2-3 days for repeat BMP, nephorlogy in 1-2 weeks Date of Encounter: 10/25/18 Time of Encounter: 11:26 - Discharge Diagnosis (1) Hyponatremia Priority: Primary Status: Acute Hospital course: Mr. 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 He recently had labs performed at his tremor care physician and was told that he has sodium of 121 and was referred to the emergency department. He reports that he has had an extensive workup for his recurrent hyponatremia and was told that he has SIADH at another facility. He started to follow with nephrology at [place] recently for his hyponatremia. He reports that he drinks at least 7-8 glasses of liquids a day to try to keep himself hydrated most of that he reports is reports drinks with electrolytes in them. He denies excessive thirst and he was told by another facility after having workup performed that he has SIADH. His sodium has gone as low as 111 before. He does report that for the past few days he has been becoming more fatigued he cannot recall alleviating or aggravating factors but his fatigue has been progressively worsening. He was prescribed salt tablets 1 g twice a day at the other facility where workup was done for SIADH and he reports that he is compliant with his salt tablets however after having a bowel movement yesterday he realizes the salt tablet was not dissolved. Pt was keptin the hosptila and pt was started on NS 3% and was givne vaptan. Pt was transfered to ICU from ED and pt was irmpoved with 3 % nromal saline, and pt had fluid restrciton, and pt improved. Nephorlogy saw the pt recommended to cont fluid restriciotn, and cont salt t ablets. Pt stated the sodium tablets were bad, we are writing two prescirptions for NaCl and pt will get new tablest. - Time Spent with Patient Total time spent providing and/or coordinating discharge services: - Discharge Medications Prescriptions: Continued Diphenoxylate/Atropine [Lomotil 2.5 mg/0.025 mg] 1 tab PO DAILY Multivitamin [Daily Multiple Vitamin] 1 tab PO DAILY Loperamide [Imodium] 2 mg PO BID Fluticasone Propionate Nasal [Flonase] 2 spr NS DAILY Changed Sodium Chloride [Sodium Chloride Tab] 1 gm PO TID #90 tablet Home Medications: Diphenoxylate/Atropine [Lomotil 2.5 mg/0.025 mg] 1 tab PO DAILY 10/22/18 [History] Fluticasone Propionate Nasal [Flonase] 2 spr NS DAILY 10/22/18 [History] Loperamide [Imodium] 2 mg PO BID 10/22/18 [History] Multivitamin [Daily Multiple Vitamin] 1 tab PO DAILY 10/22/18 [History] Sodium Chloride [Sodium Chloride Tab] 1 gm PO TID #90 tablet 10/25/18 [Rx] Allergies/Adverse Reactions: Allergy/AdvReac Type Severity Reaction Status Date / Time morphine Allergy See Verified 10/22/18 06:49 Comments aspirin AdvReac See Verified 10/22/18 06:49 Comments NSAIDS (Non-Steroidal AdvReac See Verified 10/22/18 06:49 Anti-Inflamma Comments Date of admission: 10/23/18 13:37 Primary care physician: Alessandra Reyes CNP Consults: 10/22/18 09:01 Consult to Nephrology [CONS] Stat Consulting Provider: Kidney Babs/MANJU/ADRYAN/SPENCER Reason for Consult: hyponatremia Time Notified: 09:01 Call Completed: Yes 10/22/18 18:29 Consult to Surgery [CONS] Routine Consulting Provider: Harry Fatima Reason for Consult: central line for 3% saline Call Completed: Yes - Constitutional Vitals: Temp Pulse Resp BP Pulse Ox 97.3 F L 79 17 115/75 98 10/25/18 06:44 10/25/18 06:44 10/25/18 06:44 10/25/18 06:44 10/25/18 06:44 Exam: General: Patient is alert, oriented, no acute distress, Head: atraumatic, normocephalic, Eye: normal appearance, PERRL, no scleral icterus, no conjunctival injection ENT: mucous membranes moist, normal external ear exam Neck: normal inspection, trachea midline, full ROM Chest: normal inspection, symmetric chest rise Respiratory: Good respiratory effort. Bilateral breath sounds are clear without wheezing, crackles, or rhonchi. Cardiovascular: Regular rate and rhythm. s1 and s2 No clicks, rubs, gallops, or murmors. Abdomen: Bowel sounds present normoactive x-4 quadrants. Abdomen is soft, nondistended. no Epigastric tenderness. No guarding or rebound. No organomegaly noted, obese musculoskeletal: Spontaneously moving all extremities. no edema, no calf tenderness Skin: warm, dry, intact. Neuro: Alert and oriented x4. No focal deficit Psych: Patient's affect is normal - Patient Status Disposition: Home, Self-Care Condition: Fair - Discharge Instructions Follow Up With: Alessandar Reyes, [employer]ICER [Primary Care Provider] -
== END 2018-10-25 12:31 | disposition home or self-care (01) | DRG 644 ==
LOC: EMEROOARM 06:46 → 2NENU 09:18 → INTOOBSV 09:18 → 2NENU 10:15 → ICNU 18:56 → SUATTDRO 10-23 13:37 → 2NENU 10-24 10:55
PROVIDERS: ADMIT Internal Medicine; ATTEND Internal Medicine

== ENCOUNTER 2022-02-27 10:35 | Inpatient (IN) ==
[2022-02-27] MEDS ORDERED: Ondansetron 4 MG/2 ML VIAL IVP ONE (11:32)
[2022-02-27 12:05] LABS: Basophils % 0.2 %; Eosinophils # 0.1 K/mcL (0.0-0.6); Eosinophils % 1.5 %; Hematocrit 33.2 % (37.5-50.1); Hemoglobin 11.4 g/dL (12.9-16.9); Immature Granulocytes % 0.2 % (0-4); Lymphocytes # 1.5 K/mcL (0.6-4.6); Lymphocytes % 15.2 %; Mean Corpuscular HGB Conc 34.3 g/dL (31.6-35.5); Mean Corpuscular Hemoglobin 28.5 pg (28.0-33.3); Mean Platelet Volume 10.5 fL (9.4-12.4); Monocytes # 1.2 K/mcL (0.0-1.3); Monocytes % 12.6 %; Neutrophils # 6.8 K/mcL (1.6-8.9); Platelet Count 251 K/mcL (140-400); Red Cell Distribution Width 13.6 % (11.5-14.5); Segmented Neutrophils % 70.3 %; White Blood Count 9.6 K/mcL (4.3-11.1)
[2022-02-27 12:39] LABS: Influenza A PCR Negative (Negative); Influenza B PCR Negative (Negative); Resp. Syncytial Virus PCR Negative (Negative)
[2022-02-27 12:51] LABS: Troponin I < 0.03 ng/mL (< 0.04)
[2022-02-27 12:55] LABS: SARS-CoV-2 by PCR (In House) Positive (Negative)
[2022-02-27 12:58] LABS: Alanine Aminotransferase 21 Units/L (7-52); Albumin/Globulin Ratio 1.2 (1.1-2.2); Alkaline Phosphatase 69 Units/L (34-104); Aspartate Amino Transferase 30 Units/L (13-39); BUN/Creatinine Ratio 17 (6-26); Bilirubin,Total 0.5 mg/dL (0.3-1.0); Blood Urea Nitrogen 12 mg/dL (8-23); Calcium 8.8 mg/dL (8.6-10.3); Carbon Dioxide 25 mEq/L (23-29); Chloride 84 mEq/L (98-107); Globulin 3.3 g/dL (2.4-3.5); Glucose 79 mg/dL (70-105); Osmolality,Calculated 245 (280-300); Potassium 4.5 mEq/L (3.5-5.1); Sodium 118 mEq/L (136-145); Total Protein 7.3 g/dL (6.4-8.9)
[2022-02-27] MEDS ORDERED: 0.9 % Sodium Chloride 1,000 ML IVC ONE (13:02)
[2022-02-27] MEDS ORDERED: Ondansetron 4 MG/2 ML VIAL IVP PRN (14:52)
[2022-02-27] MEDS ORDERED: Naloxone 0.4 MG/ML INJ IVP PRN (14:52)
[2022-02-27] MEDS ORDERED: Benzonatate 100 MG CAPSULE PO PRN (15:06)
[2022-02-27 15:48] LABS: Sodium, Urine 245.7 mEq/L
[2022-02-27 15:54] LABS: Bilirubin,Urine Negative (Negative); Blood,Urine Negative (Negative); Clarity,Urine Clear (Clear); Color,Urine Light-Yellow (Yellow); Glucose,Urine (UA) Normal (Normal); Ketones,Urine 20 mg/dL (Negative); Leukocyte Esterase,Urine Negative (Negative); Nitrite,Urine Negative (Negative); PH,Urine 6.5 pH Units (5.0-8.0); Protein,Urine Negative (Neg-Trace); Urobilinogen,Urine Normal (Normal)
[2022-02-27] MEDS: *HR* Heparin 5,000 UNIT/ML VIAL SQ SCH (16:51)
[2022-02-27 18:14] LABS: BUN/Creatinine Ratio 17 (6-26); Blood Urea Nitrogen 10 mg/dL (8-23); Calcium 8.7 mg/dL (8.6-10.3); Carbon Dioxide 23 mEq/L (23-29); Chloride 85 mEq/L (98-107); Glucose 82 mg/dL (70-105); Osmolality,Calculated 238 (280-300); Potassium 4.5 mEq/L (3.5-5.1); Sodium 115 mEq/L (136-145)
[2022-02-28 03:19] LABS: Basophils % 0.3 %; Eosinophils % 0.2 %; Hematocrit 35.3 % (37.5-50.1); Hemoglobin 12.4 g/dL (12.9-16.9); Immature Granulocytes % 0.3 % (0-4); Lymphocytes # 1.4 K/mcL (0.6-4.6); Lymphocytes % 14.7 %; Mean Corpuscular HGB Conc 35.1 g/dL (31.6-35.5); Mean Corpuscular Volume 82.7 fL (83.0-100.0); Mean Platelet Volume 11.9 fL (9.4-12.4); Monocytes # 1.2 K/mcL (0.0-1.3); Monocytes % 12.4 %; Neutrophils # 6.9 K/mcL (1.6-8.9); Platelet Count 241 K/mcL (140-400); Red Blood Count 4.27 M/mcL (4.19-5.50); Red Cell Distribution Width 13.5 % (11.5-14.5); Segmented Neutrophils % 72.1 %; White Blood Count 9.6 K/mcL (4.3-11.1)
[2022-02-28 04:09] LABS: BUN/Creatinine Ratio 13 (6-26); Blood Urea Nitrogen 10 mg/dL (8-23); Carbon Dioxide 24 mEq/L (23-29); Chloride 81 mEq/L (98-107); Glucose 82 mg/dL (70-105); Magnesium 1.4 mg/dL (1.6-2.6); Osmolality,Calculated 236 (280-300); Phosphorous 2.9 mg/dL (2.7-4.5); Potassium 4.5 mEq/L (3.5-5.1); Sodium 114 mEq/L (136-145)
[2022-02-28] MEDS: *HR* Heparin 5,000 UNIT/ML VIAL SQ SCH ×2 (06:13→17:24)
[2022-02-28] MEDS: Diphenoxylate/Atropine 1 TAB TABLET PO SCH ×2 (10:22→21:06)
[2022-02-28 10:32] LABS: BUN/Creatinine Ratio 16 (6-26); Blood Urea Nitrogen 13 mg/dL (8-23); Calcium 8.7 mg/dL (8.6-10.3); Carbon Dioxide 24 mEq/L (23-29); Chloride 83 mEq/L (98-107); Glucose 92 mg/dL (70-105); Osmolality,Calculated 236 (280-300); Potassium 4.2 mEq/L (3.5-5.1); Sodium 113 mEq/L (136-145)
[2022-02-28 16:43] LABS: BUN/Creatinine Ratio 19 (6-26); Blood Urea Nitrogen 14 mg/dL (8-23); Calcium 8.3 mg/dL (8.6-10.3); Carbon Dioxide 25 mEq/L (23-29); Chloride 86 mEq/L (98-107); Glucose 92 mg/dL (70-105); Osmolality,Calculated 248 (280-300); Potassium 4.1 mEq/L (3.5-5.1); Sodium 119 mEq/L (136-145)
[2022-02-28] MEDS: Acetaminophen 325 MG TABLET PO PRN (21:09)
[2022-02-28 22:03] LABS: BUN/Creatinine Ratio 25 (6-26); Blood Urea Nitrogen 15 mg/dL (8-23); Calcium 8.3 mg/dL (8.6-10.3); Carbon Dioxide 20 mEq/L (23-29); Chloride 90 mEq/L (98-107); Glucose 92 mg/dL (70-105); Osmolality,Calculated 250 (280-300); Potassium 5.2 mEq/L (3.5-5.1); Sodium 120 mEq/L (136-145)
[2022-03-01] MEDS: *HR* Heparin 5,000 UNIT/ML VIAL SQ SCH ×2 (05:02→18:41)
[2022-03-01] MEDS: Diphenoxylate/Atropine 1 TAB TABLET PO SCH ×2 (08:21→20:52)
[2022-03-01 09:43] LABS: BUN/Creatinine Ratio 18 (6-26); Blood Urea Nitrogen 11 mg/dL (8-23); Calcium 8.4 mg/dL (8.6-10.3); Carbon Dioxide 25 mEq/L (23-29); Chloride 84 mEq/L (98-107); Glucose 87 mg/dL (70-105); Osmolality,Calculated 241 (280-300); Potassium 4.2 mEq/L (3.5-5.1); Sodium 116 mEq/L (136-145)
[2022-03-01] MEDS: Acetaminophen 325 MG TABLET PO PRN (14:10)
[2022-03-01 14:32] LABS: Uric Acid 2.4 mg/dL (2.3-7.6)
[2022-03-01 14:42] LABS: Thyroid Stimulating Hormone 0.772 mcIU/mL (0.340-5.600)
[2022-03-01 15:15] LABS: BUN/Creatinine Ratio 18 (6-26); Blood Urea Nitrogen 12 mg/dL (8-23); Calcium 8.2 mg/dL (8.6-10.3); Carbon Dioxide 27 mEq/L (23-29); Chloride 85 mEq/L (98-107); Glucose 106 mg/dL (70-105); Osmolality,Calculated 244 (280-300); Sodium 117 mEq/L (136-145)
[2022-03-01 22:58] LABS: BUN/Creatinine Ratio 18 (6-26); Blood Urea Nitrogen 10 mg/dL (8-23); Calcium 8.1 mg/dL (8.6-10.3); Carbon Dioxide 23 mEq/L (23-29); Chloride 88 mEq/L (98-107); Glucose 103 mg/dL (70-105); Osmolality,Calculated 245 (280-300); Sodium 118 mEq/L (136-145)
[2022-03-02] MEDS: *HR* Heparin 5,000 UNIT/ML VIAL SQ SCH ×2 (04:34→17:24)
[2022-03-02 04:52] VITALS: O2SAT 100
[2022-03-02] MEDS: Acetaminophen 325 MG TABLET PO PRN (05:19)
[2022-03-02 06:54] LABS: BUN/Creatinine Ratio 19 (6-26); Blood Urea Nitrogen 10 mg/dL (8-23); Calcium 8.5 mg/dL (8.6-10.3); Carbon Dioxide 24 mEq/L (23-29); Chloride 94 mEq/L (98-107); Glucose 87 mg/dL (70-105); Osmolality,Calculated 256 (280-300); Potassium 4.3 mEq/L (3.5-5.1); Sodium 124 mEq/L (136-145)
[2022-03-02] MEDS: Diphenoxylate/Atropine 1 TAB TABLET PO SCH ×2 (11:00→19:40)
[2022-03-02 17:17] LABS: BUN/Creatinine Ratio 18 (6-26); Blood Urea Nitrogen 12 mg/dL (8-23); Calcium 8.6 mg/dL (8.6-10.3); Carbon Dioxide 27 mEq/L (23-29); Chloride 98 mEq/L (98-107); Glucose 108 mg/dL (70-105); Osmolality,Calculated 272 (280-300); Potassium 4.1 mEq/L (3.5-5.1); Sodium 131 mEq/L (136-145)
[2022-03-02 23:19] VITALS: BP 115/78; PULSE 64; TEMP 98.7
[2022-03-02 23:28] LABS: BUN/Creatinine Ratio 17 (6-26); Blood Urea Nitrogen 10 mg/dL (8-23); Calcium 8.5 mg/dL (8.6-10.3); Carbon Dioxide 26 mEq/L (23-29); Chloride 98 mEq/L (98-107); Glucose 88 mg/dL (70-105); Osmolality,Calculated 270 (280-300); Potassium 4.4 mEq/L (3.5-5.1); Sodium 131 mEq/L (136-145)
[2022-03-03] MEDS: *HR* Heparin 5,000 UNIT/ML VIAL SQ SCH (06:14)
[2022-03-03] MEDS: Diphenoxylate/Atropine 1 TAB TABLET PO SCH (09:01)
== END 2022-03-03 10:45 | disposition home or self-care (01) | DRG 178 ==
LOC: 3NENU 10:35 → EMEROOARM 10:35 → 3NENU 15:42
PROVIDERS: ADMIT Student in an Organized Health Care Education/Training Program; ATTEND Student in an Organized Health Care Education/Training Program